=== PATIENT | female | born 1980 | race African-American/Black ===

== ENCOUNTER 2017-07-31 13:16 | Inpatient (IN) ==
[2017-08-04 11:07] VITALS: BP 130/73
== END 2017-08-04 11:45 | disposition home or self-care (01) | DRG 138 ==
LOC: N.ED 13:16 → N.EDINP 17:12 → SUATTDRO 17:12 → N.5E 18:45
PROVIDERS: ADMIT Hospitalist; ATTEND Internal Medicine